=== PATIENT | female | born 1955 | race Caucasian/White ===

== ENCOUNTER → 2016-11-30 | Outpatient (CLI) | payer OTHER ==
--- NOTE | 2016-12-01 09:51 | MM ---
Reason for exam: screening (asymptomatic). Baseline mammogram. History: Patient is postmenopausal. Physical Findings: Nurse did not find any significant physical abnormalities on exam. MG Screening Mammo w CAD Bilateral CC and MLO view(s) were taken. There are scattered fibroglandular densities. There is chronic nodularity in the left breast. ASSESSMENT: Benign, BI-RAD 2 RECOMMENDATION: Routine screening mammogram of both breasts in 1 year.
== END | disposition home or self-care (01) ==
LOC: RADMAMWWP 10:16
PROVIDERS: ATTEND Family Medicine
DX: Z12.31 Encounter for screening mammogram for malignant neoplasm of breast (principal)

== ENCOUNTER → 2017-07-30 | Outpatient (CLI) | payer OTHER ==
--- NOTE | 2017-07-30 22:07 | MR ---
EXAMINATION TYPE: MR brain wo con DATE OF EXAM: 07/30/2017 COMPARISON: NONE HISTORY: Trigeminal neuralgia CONTRAST: Performed utilizing 0 mL intravenous Gadavist gadolinium contrast. TECHNIQUE: Multiplanar, multiecho imaging on a 3.0 Caitlyn magnet is performed through the brain. Stud y is performed within 24 hours of arrival to the hospital. The craniovertebral junction is normal. The pituitary is normal. No suspicious masses within the se lla and suprasellar cistern. Diffusion-weighted imaging is performed. No abnormal hyperintensity is present to suggest an acute i ntracranial infarct or acute ischemic change. There is a punctate subcortical white matter changes in the left parietal lobe this is not of proport ion to the patient age. Ventricles and sulci are appropriate for the patient age. IMPRESSIONS: 1. Unremarkable MRI brain. 2. No suspicious trigeminal nerve changes. Thin section Postcontrast imaging may be useful for additi onal closer evaluation.
== END | disposition home or self-care (01) ==
LOC: RADMRIMAIN 10:02
PROVIDERS: ATTEND Psychiatry & Neurology Pain Medicine
DX: G50.0 Trigeminal neuralgia (principal)
CPT/HCPCS: 70551

== ENCOUNTER → 2019-03-12 | Outpatient (CLI) | payer OTHER ==
--- NOTE | 2019-03-13 13:48 | MM ---
Reason for exam: screening (asymptomatic). Last mammogram was performed 2 years and 3 months ago. History: Patient is postmenopausal. Physical Findings: A clinical breast exam by your physician is recommended on an annual basis and results should be correlated with mammographic findings. MG Screening Mammo w CAD Bilateral CC and MLO view(s) were taken. Prior study comparison: November 30, 2016, bilateral MG screening mammo w CAD. The breast tissue is heterogeneously dense. This may lower the sensitivity of mammography. No suspicious abnormality. No significant changes when compared with prior studies. ASSESSMENT: Negative, BI-RAD 1 RECOMMENDATION: Routine screening mammogram of both breasts in 1 year.
== END ==
LOC: RADMAMWWP 10:48
PROVIDERS: ATTEND Family Medicine
DX: Z12.31 Encounter for screening mammogram for malignant neoplasm of breast (principal)
CPT/HCPCS: 77067

== ENCOUNTER → 2021-01-20 | Outpatient (CLI) | payer OTHER ==
--- NOTE | 2021-01-22 13:40 | MM ---
Reason for exam: screening (asymptomatic). Last mammogram was performed 1 year and 10 months ago. History: Patient is postmenopausal. Physical Findings: A clinical breast exam by your physician is recommended on an annual basis and results should be correlated with mammographic findings. MG Screening Mammo w CAD Bilateral CC and MLO view(s) were taken. Prior study comparison: March 12, 2019, bilateral MG screening mammo w CAD. November 30, 2016, bilateral MG screening mammo w CAD. The breast tissue is heterogeneously dense. This may lower the sensitivity of mammography. There is chronic nodularity in the left breast. No significant changes when compared with prior studies. ASSESSMENT: Benign, BI-RAD 2 RECOMMENDATION: Routine screening mammogram of both breasts in 1 year.
== END | disposition home or self-care (01) ==
LOC: RADMAMWWP 15:08
PROVIDERS: ATTEND Family Medicine
DX: Z12.31 Encounter for screening mammogram for malignant neoplasm of breast (principal); Z78.0 Asymptomatic menopausal state
CPT/HCPCS: 77067

== ENCOUNTER → 2022-03-23 | Outpatient (CLI) | payer OTHER ==
--- NOTE | 2022-03-24 12:25 | MM ---
Reason for Exam: Additional evaluation requested from abnormal screening. Last screening mammogram was performed less than 1 month ago. Patient History: Menarche at age 14. First Full-Term at age 18. Left ovary removed at age 32. Hysterectomy at age 32. Postmenopausal. Niece (mily) had breast cancer under age 50. Risk Values: Rody 5 year model risk: 1.2%. NCI Lifetime model risk: 4.7%. Prior Study Comparison: 03/12/2019 Bilateral Screening Mammogram, [facility]. 01/20/2021 Bilateral Screening Mammogram, [facility]. 02/26/2022 Bilateral MG screening mammo w CAD, [facility]. Tissue Density: Left: The breast tissue is heterogeneously dense. This may lower the sensitivity of mammography. Findings: A mildly lobulated, circumscribed 7 mm mass at the 4:00 position left breast middle depth persists but has an appearance similar to older priors on additional views. Six-month follow-up mammogram is recommended as a precautionary measure. Overall Assessment: Probably benign, BI-RAD 3 Management: Diagnostic Mammogram of the left breast in 6 months. 1. Six-month follow-up diagnostic left breast mammogram for the 4:00 nodularity which appears similar to older priors on additional images. 2. The patient should continue monthly self breast exams. 3. This exam should not preclude additional follow-up of suspicious palpable abnormalities. Results were given to the patient verbally at the time of exam. Electronically signed and approved by: Irene Robles M.D. Radiologist
== END | disposition home or self-care (01) ==
LOC: RADMAMWWP 14:55
PROVIDERS: ATTEND Family Medicine
DX: R92.8 Other abnormal and inconclusive findings on diagnostic imaging of breast (principal)
CPT/HCPCS: 77065

== ENCOUNTER → 2022-10-19 | Outpatient (CLI) | payer OTHER ==
--- NOTE | 2022-10-19 14:46 | MM ---
Reason for Exam: Follow-up at short interval from prior study. Last screening mammogram was performed 8 month(s) ago. Patient History: Menarche at age 14. First Full-Term at age 18. Left ovary removed at age 32. Hysterectomy at age 32. Postmenopausal. Niece (mily) had breast cancer under age 50. Risk Values: Rody 5 year model risk: 1.2%. NCI Lifetime model risk: 4.6%. Prior Study Comparison: 01/20/2021 Bilateral Screening Mammogram, [facility]. 02/26/2022 Bilateral MG screening mammo w CAD, [facility]. 03/23/2022 Left MG work up mamm w CAD LT, [facility]. Tissue Density: Left: There are scattered fibroglandular densities. Findings: Analyzed By CAD. Redemonstrated lobulated mass central lower outer quadrant left breast at middle depth measuring 6 mm. Slightly more pronounced from prior exam. Further ultrasound evaluation is recommended. Overall Assessment: Incomplete: need additional imaging evaluation, BI-RAD 0 Management: Diagnostic Breast Ultrasound of the left breast. Lower-outer quadrant. Electronically signed and approved by: Irene Robles M.D. Radiologist
--- NOTE | 2022-10-19 15:06 | USB ---
Reason for Exam: Additional evaluation requested from abnormal screening. Patient History: Menarche at age 14. First Full-Term at age 18. Left ovary removed at age 32. Hysterectomy at age 32. Postmenopausal. Niece (mily) had breast cancer under age 50. Risk Values: Rody 5 year model risk: 1.2%. NCI Lifetime model risk: 4.6%. Technique: Method: Targeted. Prior Study Comparison: 01/20/2021 Bilateral Screening Mammogram, [facility]. 02/26/2022 Bilateral MG screening mammo w CAD, [facility]. 03/23/2022 Left MG work up mamm w CAD LT, [facility]. Findings: The upper outer quadrant of the left breast, the axilla of the left breast and the retroareolar of the left breast were scanned. Targeted ultrasound lateral aspect of the left breast from 2:00 to 4:00 including the subareolar region and axilla. Corresponding to the mammographic abnormality, located at 4:00, 5 cm from the nipple, there is a cyst cluster measuring 7 x 6 x 3 mm. No other solid or cystic lesion.. Overall Assessment: Benign, BI-RAD 2 Management: Screening Mammogram of both breasts in 6 months. 1. Patient should continue monthly self breast exams. 2. A clinical breast exam by your physician is recommended on an annual basis. 3. This exam should not preclude additional follow-up of suspicious palpable abnormalities. Results were given to the patient verbally at the time of exam. Electronically signed and approved by: Irene Robles M.D. Radiologist
== END | disposition home or self-care (01) ==
LOC: RADMAMWWP 14:15
PROVIDERS: ATTEND Family Medicine
DX: R92.8 Other abnormal and inconclusive findings on diagnostic imaging of breast (principal); Z78.0 Asymptomatic menopausal state
CPT/HCPCS: 77065

== ENCOUNTER 2023-03-04 09:52 | Day surgery (SDC) | payer MEDICARE, OTHER ==
[2023-03-02 10:09] VITALS: BMI 24.2
[~2023-03-04 09:52] MED LIST: LACTATED RINGERS 1,000 ML IV SCH
[2023-03-04] MEDS ORDERED: LACTATED RINGERS 1,000 ML IV ONE (10:22)
[2023-03-04 10:30] VITALS: RESP 16; TEMP 98
[2023-03-04] MEDS ORDERED: PROPOFOL 10 MG/ML 20 ML VIAL IV ONE (11:17)
--- NOTE | 2023-03-04 11:36 | P.PCN ---
Date of Procedure: 03/04/23 Procedure(s) Performed: BRIEF HISTORY: Patient is a 67-year-old pleasant female scheduled for an elective colonoscopy as a part of left lower quadrant abdominal pain and change in bowel habits for the last 6 months duration. PROCEDURE PERFORMED: Colonoscopy with snare polypectomy. PREOPERATIVE DIAGNOSIS: Left lower quadrant abdominal pain and change in bowel habits for the last 6 months duration. IV sedation per Anesthesia. PROCEDURE: After informed consent was obtained, the patient, was brought into the endoscopy unit. IV sedation was administered by Anesthesia under continuous monitoring. Digital rectal examination was normal. Initially the Olympus CF-160 flexible video colonoscope was then inserted in the rectum, gradually advanced into the cecum without any difficulty. Careful examination was performed as the scope was gradually being withdrawn. Ileocecal valve and the appendiceal orifice were visualized and appeared normal. Prep was excellent. Mucosa of the cecum, ascending colon, transverse colon, descending colon, appeared normal. In the sigmoid colon there was a 7-8 mm polyp removed by snare polypectomy. Scattered sigmoid diverticula seen. Rest of the sigmoid colon, and rectum appeared normal. Retroflexion was performed in the rectum and no lesions were seen. The patient tolerated the procedure well. IMPRESSION: 7-8 mm sigmoid polyp status post-polypectomy Scattered sigmoid diverticulosis RECOMMENDATIONS: Findings of this examination were discussed with the patient as well as a family. She was advised to follow with the biopsy results. If the biopsy reveals adenoma she can have a repeat colonoscopy in 5 years..
[2023-03-04 12:09] VITALS: BP 126/68; PULSE 68
== END 2023-03-04 12:47 | disposition home or self-care (01) ==
LOC: ORWHC2ENDO 09:52
PROVIDERS: ATTEND Internal Medicine Gastroenterology
DX: D12.5 Benign neoplasm of sigmoid colon (principal); K57.30 Diverticulosis of large intestine without perforation or abscess without bleeding; I10 Essential (primary) hypertension; E78.5 Hyperlipidemia, unspecified; F17.210 Nicotine dependence, cigarettes, uncomplicated; E03.9 Hypothyroidism, unspecified; Z79.890 Hormone replacement therapy; Z79.899 Other long term (current) drug therapy
CPT/HCPCS: 88305; 45385; J2704

== ENCOUNTER 2023-03-09 02:39 | Emergency (ER) | payer MEDICARE, OTHER ==
[2023-03-09 03:58] LABS: Basophils # (A) 0.1 k/uL (0-0.2); Basophils % (A) 0 %; Eosinophils # (A) 0.3 k/uL (0-0.7); Eosinophils % (A) 3 %; HCT 42.6 % (34.0-46.0); HGB 14.6 gm/dL (11.4-16.0); Lymphocytes # (A) 2.4 k/uL (1.0-4.8); Lymphocytes % (A) 19 %; MCH 31.7 pg (25.0-35.0); MCHC 34.2 g/dL (31.0-37.0); MCV 92.8 fL (80.0-100.0); Mean Platelet Volume 6.8; Monocytes # (A) 0.6 k/uL (0-1.0); Monocytes % (A) 5 %; Neutrophils # (A) 9.1 k/uL (1.3-7.7); Neutrophils % (A) 71 %; Platelet Count 353 k/uL (150-450); RBC 4.59 m/uL (3.80-5.40); RDW 12.6 % (11.5-15.5); WBC 12.8 k/uL (3.8-10.6)
[2023-03-09 04:06] LABS: Amorphous Sediment,Urine Rare /hpf; Appearance,Urine Clear (Clear); Bilirubin,Urine Negative (Negative); Blood,Urine Small (Negative); Color,Urine Light Yellow; Glucose,Urine (UA) Negative (Negative); Ketones,Urine 2+ (Negative); Leukocyte Esterase,Urine Small (Negative); Mucus,Urine Rare /hpf; Nitrite,Urine Negative (Negative); Protein,Urine Negative (Negative); RBC,Urine 21 /hpf (0-5); Specific Gravity,Urine 1.012 (1.001-1.035); Squamous Epithelial Cell,Urine 4 /hpf (0-4); Urobilinogen,Urine <2.0 mg/dL (<2.0); WBC,Urine 11 /hpf (0-5)
[2023-03-09 04:07] LABS: Albumin 4.7 g/dL (3.5-5.0); Calcium 9.4 mg/dL (8.4-10.2); Potassium 3.9 mmol/L (3.5-5.1); Total Bilirubin 0.9 mg/dL (0.2-1.3); Total Protein 7.4 g/dL (6.3-8.2)
--- NOTE | 2023-03-09 06:51 | ED ---
Abdominal Pain HPI - General Chief Complaint: Abdominal Pain Stated Complaint: Abd pain Time Seen by Provider: 03/09/23 06:09 Source: patient, RN notes reviewed Mode of arrival: ambulatory Limitations: no limitations - History of Present Illness Initial Comments: 67-year-old female presents emergency Department with chief complaint of abdominal pain. Patient was seen in the form lisinopril left before treatment. Patient states she's been having issues with her wrong with since October she did have colonoscopy withacute findings other than one polyp. Patient states that she has very narrow stool states that it's usually very irregular. Patient denies any localized abdominal pain she states her primary was consented for CAT scan but was never completed. Patient denies fevers or chills she has not follow-up again with GI she denies any change in oral intake. - Related Data Home Medications Medication Instructions Recorded Confirmed Atorvastatin [Lipitor] 20 mg PO HS 03/10/16 03/04/23 Levothyroxine Sodium 25 mcg PO DAILY 03/02/23 03/04/23 amLODIPine [Norvasc] 5 mg PO HS 03/02/23 03/04/23 Previous Rx's Medication Instructions Recorded Ketorolac [Toradol] 10 mg PO Q8HR #15 tab 03/09/23 Nitrofurantoin Monohyd/M-Cryst 100 mg PO Q12HR #14 cap 03/09/23 [Macrobid] Ondansetron Odt [Zofran Odt] 4 mg PO Q8HR PRN #10 tab 03/09/23 Allergies Allergy/AdvReac Type Severity Reaction Status Date / Time No Known Allergies Allergy Verified 03/09/23 02:48 Review of Systems ROS Statement: Those systems with pertinent positive or pertinent negative responses have been documented in the HPI. ROS Other: All systems not noted in ROS Statement are negative. Past Medical History Past Medical History: Hyperlipidemia, Hypertension, Thyroid Disorder Additional Past Medical History / Comment(s): CHANGE IN BOWEL HABITS History of Any Multi-Drug Resistant Organisms: MRSA Date of last positivie culture/infection: 2011 MDRO Source:: right arm- Past Surgical History: Hysterectomy Additional Past Surgical History / Comment(s): COLONOSCOPY Past Anesthesia/Blood Transfusion Reactions: No Reported Reaction Past Psychological History: No Psychological Hx Reported Smoking Status: Current every day smoker Past Alcohol Use History: None Reported Past Drug Use History: None Reported - Past Family History Mother Family Medical History: Cancer Brother(s) Family Medical History: Cancer General Exam Limitations: no limitations General appearance: alert, in no apparent distress Head exam: Present: atraumatic, normocephalic, normal inspection Neck exam: Present: normal inspection. Absent: tenderness, meningismus, lymphadenopathy Respiratory exam: Present: normal lung sounds bilaterally. Absent: respiratory distress, wheezes, rales, rhonchi, stridor Cardiovascular Exam: Present: regular rate, normal rhythm, normal heart sounds. Absent: systolic murmur, diastolic murmur, rubs, gallop, clicks GI/Abdominal exam: Present: soft, normal bowel sounds. Absent: distended, ten derness, guarding, rebound, rigid Back exam: Absent: CVA tenderness (R), CVA tenderness (L) Neurological exam: Present: alert Course Vital Signs 03/09/23 03/09/23 03/09/23 02:48 04:30 05:21 Temperature 98.1 F 98.6 F Pulse Rate 89 68 67 Respiratory 16 18 18 Rate Blood Pressure 147/79 158/68 143/68 O2 Sat by Pulse 98 99 96 Oximetry 03/09/23 03/09/23 06:48 07:40 Temperature 98.1 F Pulse Rate 71 81 Respiratory 16 20 Rate Blood Pressure 136/67 153/71 O2 Sat by Pulse 97 99 Oximetry Medical Decision Making - Lab Data Result diagrams: 03/09/23 03:48 03/09/23 03:48 Lab Results 03/09/23 03/09/23 03/09/23 Range/Units 03:48 03:48 03:48 WBC 12.8 H (3.8-10.6) k/uL RBC 4.59 (3.80-5.40) m/uL Hgb 14.6 (11.4-16.0) gm/dL Hct 42.6 (34.0-46.0) % MCV 92.8 (80.0-100.0) fL MCH 31.7 (25.0-35.0) pg MCHC 34.2 (31.0-37.0) g/dL RDW 12.6 (11.5-15.5) % Plt Count 353 (150-450) k/uL MPV 6.8 Neutrophils % 71 % Lymphocytes % 19 % Monocytes % 5 % Eosinophils % 3 % Basophils % 0 % Neutrophils # 9.1 H (1.3-7.7) k/uL Lymphocytes # 2.4 (1.0-4.8) k/uL Monocytes # 0.6 (0-1.0) k/uL Eosinophils # 0.3 (0-0.7) k/uL Basophils # 0.1 (0-0.2) k/uL Sodium 140 (137-145) mmol/L Potassium 3.9 (3.5-5.1) mmol/L Chloride 106 (98-107) mmol/L Carbon Dioxide 24 (22-30) mmol/L Anion Gap 10 mmol/L BUN 19 H (7-17) mg/dL Creatinine 0.90 (0.52-1.04) mg/dL Est GFR (CKD-EPI)AfAm 78 (>60 ml/min/1.73 sqM) Est GFR (CKD-EPI)NonAf 68 (>60 ml/min/1.73 sqM) Glucose 98 (74-99) mg/dL Plasma Lactic Acid Jacobo (0.7-2.0) mmol/L Calcium 9.4 (8.4-10.2) mg/dL Total Bilirubin 0.9 (0.2-1.3) mg/dL AST 25 (14-36) U/L ALT 16 (4-34) U/L Alkaline Phosphatase 134 H (38-126) U/L Total Protein 7.4 (6.3-8.2) g/dL Albumin 4.7 (3.5-5.0) g/dL Amylase 43 (30-110) U/L Lipase 88 (23-300) U/L Urine Color Light Yellow Urine Appearance Clear (Clear) Urine pH 5.0 (5.0-8.0) Ur Specific [place] 1.012 (1.001-1.035) Urine Protein Negative (Negative) Urine Glucose (UA) Negative (Negative) Urine Ketones 2+ H (Negative) Urine Blood Small H (Negative) Urine Nitrite Negative (Negative) Urine Bilirubin Negative (Negative) Urine Urobilinogen <2.0 (<2.0) mg/dL Ur Leukocyte Esterase Small H (Negative) Urine RBC 21 H (0-5) /hpf Urine WBC 11 H (0-5) /hpf Ur Squamous Epith Cells 4 (0-4) /hpf Amorphous Sediment Rare H (None) /hpf Urine Mucus Rare H (None) /hpf 03/09/23 Range/Units 03:48 WBC (3.8-10.6) k/uL RBC (3.80-5.40) m/uL Hgb (11.4-16.0) gm/dL Hct (34.0-46.0) % MCV (80.0-100.0) fL MCH (25.0-35.0) pg MCHC (31.0-37.0) g/dL RDW (11.5-15.5) % Plt Count (150-450) k/uL MPV Neutrophils % % Lymphocytes % % Monocytes % % Eosinophils % % Basophils % % Neutrophils # (1.3-7.7) k/uL Lymphocytes # (1.0-4.8) k/uL Monocytes # (0-1.0) k/uL Eosinophils # (0-0.7) k/uL Basophils # (0-0.2) k/uL Sodium (137-145) mmol/L Potassium (3.5-5.1) mmol/L Chloride (98-107) mmol/L Carbon Dioxide (22-30) mmol/L Anion Gap mmol/L BUN (7-17) mg/dL Creatinine (0.52-1.04) mg/dL Est GFR (CKD-EPI)AfAm (>60 ml/min/1.73 sqM) Est GFR (CKD-EPI)NonAf (>60 ml/min/1.73 sqM) Glucose (74-99) mg/dL Plasma Lactic Acid Jacobo 1.2 (0.7-2.0) mmol/L Calcium (8.4-10.2) mg/dL Total Bilirubin (0.2-1.3) mg/dL AST (14-36) U/L ALT (4-34) U/L Alkaline Phosphatase (38-126) U/L Total Protein (6.3-8.2) g/dL Albumin (3.5-5.0) g/dL Amylase (30-110) U/L Lipase (23-300) U/L Urine Color Urine Appearance (Clear) Urine pH (5.0-8.0) Ur Specific [place] (1.001-1.035) Urine Protein (Negative) Urine Glucose (UA) (Negative) Urine Ketones (Negative) Urine Blood (Negative) Urine Nitrite (Negative) Urine Bilirubin (Negative) Urine Urobilinogen (<2.0) mg/dL Ur Leukocyte Esterase (Negative) Urine RBC (0-5) /hpf Urine WBC (0-5) /hpf Ur Squamous Epith Cells (0-4) /hpf Amorphous Sediment (None) /hpf Urine Mucus (None) /hpf Disposition Clinical Impression: Left ureteral calculus Disposition: HOME SELF-CARE Condition: Stable Instructions (If sedation given, give patient instructions): Kidney Stones (ED) Additional Instructions: Please return to the Emergency Department if symptoms worsen or any other concerns. Prescriptions: Nitrofurantoin Monohyd/M-Cryst [Macrobid] 100 mg PO Q12HR #14 cap Ketorolac [Toradol] 10 mg PO Q8HR #15 tab Ondansetron Odt [Zofran Odt] 4 mg PO Q8HR PRN #10 tab PRN Reason: Nausea Is patient prescribed a controlled substance at d/c from ED?: No Referrals: Nandini Love MD [Primary Care Provider] - 1-2 days Fei Joiner MD [STAFF PHYSICIAN] - 1-2 days Time of Disposition: 08:50
[2023-03-09 07:41] VITALS: TEMP 98.1
--- NOTE | 2023-03-09 08:18 | CT ---
EXAMINATION TYPE: CT abdomen pelvis w con DATE OF EXAM: 03/09/2023 COMPARISON: NONE HISTORY: 67-year-old female with pain TECHNIQUE: Contiguous axial scanning of the abdomen and pelvis following administration of 100 ml Iso jonatan 300 IV contrast. Delayed images through the kidneys and coronal/sagittal reconstructions perform ed. CT DLP: 568.3 mGycm Automated exposure control for dose reduction was used. FINDINGS: Heart normal size without pericardial effusion. Prominent dependent atelectasis at the left greater than right lung bases. 6 mm hypodensity left liver lobe too small for accurate CT characterization, likely small cyst. Gallito l venous system is patent. Bile duct measures 6 mm, borderline caliber, probably acceptable given patient's age. There is a 9 mm gallstone. No abnormal gallbladder distention. Adrenal glands and spleen without perisplenic mural within normal limits. Some punctate pancreatic calcifications are nonspecific, possibly sequela of prior pancreatitis. Tiny 5 mm cortical cyst lateral right kidney. Punctate 2 mm nonobstructive right renal calculus. There is moderate left-sided hydronephrosis. Mild left-sided urothelial thickening. Perinephric fat s tranding and edema noted. Mild left-sided hydroureter with a 5 mm stone in the distal third left uret er. No dilated small bowel, free fluid, or free air. No mesenteric or retroperitoneal lymphadenopathy. No significant stool burden. No pericolonic inflammatory change. Bladder urine distended. Multiple pelvic phleboliths. Uterus surgically absent. Ovaries not well deli neated. No abnormal fluid collection in the pelvis or pelvic lymphadenopathy. Bones: No osseous destructive process. IMPRESSION: 1. A 5 MM STONE IN THE DISTAL THIRD LEFT URETER WITH MODERATE OBSTRUCTIVE UROPATHY. 2. MILD REACTIVE LEFT-SIDED PERINEPHRIC EDEMA. MILD LEFT-SIDED UROTHELIAL THICKENING MAY BE REACTIVE WELL. CORRELATE TO EXCLUDE AN ASCENDING URINARY TRACT INFECTION. 3. Incidental: 9 mm gallstone and a punctate 2 mm nonobstructive right renal calculus.
[2023-03-09] MEDS ORDERED: ACET/COD 300 MG/30 MG STARTER PACK 6 TAB BTL PO STA (08:46)
[2023-03-09 08:58] VITALS: BP 132/64; PULSE 77; RESP 18
== END 2023-03-09 08:57 | disposition home or self-care (01) ==
LOC: EC 02:39
DX: N13.2 Hydronephrosis with renal and ureteral calculous obstruction (principal); I10 Essential (primary) hypertension; E78.5 Hyperlipidemia, unspecified; E07.9 Disorder of thyroid, unspecified; F17.200 Nicotine dependence, unspecified, uncomplicated; Z79.890 Hormone replacement therapy; Z79.899 Other long term (current) drug therapy
CPT/HCPCS: 36415; 80053; 82150; 83605; 83690; 85025; 81001; 74177; 99284; Q9967

== ENCOUNTER 2023-03-15 13:49 | Day surgery (SDC) | payer MEDICARE, OTHER ==
[2023-03-15 14:13] VITALS: RESP 16
[2023-03-15] MEDS ORDERED: LACTATED RINGERS 1,000 ML IV ONE ×2 (14:23→17:35)
[2023-03-15] MEDS ORDERED: ONDANSETRON 4 MG/2 ML VIAL ONE (14:28)
[2023-03-15] MEDS ORDERED: DEXAMETHASONE SOD PHOSPHATE 4 MG/ML 1 ML VIAL IVP ONE (14:31)
[2023-03-15] MEDS ORDERED: MIDAZOLAM 2 MG/2 ML VIAL ONE (16:09)
[2023-03-15] MEDS ORDERED: fentaNYL (PF) 50 MCG/ML 2 ML AMP ONE (16:09)
[2023-03-15] MEDS ORDERED: PROPOFOL 10 MG/ML 20 ML VIAL IV ONE (16:09)
--- NOTE | 2023-03-15 16:14 | P.HPIHPCON ---
History of Present Illness H&P Date: 03/15/23 Chief Complaint: left ureteral stone This is a 67 yo female with hx of 6mm left sided ureteral stone, she is symptomatic from her kidney stone, and planning to be out of town in approximately 1 week. Discussed with her given her travel plan I recommended addressing the stone prior to her travel. Option of ureteroscopy versus ESWL was discussed in detail. She agreed to proceed with ureteroscopy with holmium laser. Discussed risk of bleeding infection injury to the ureter. Risk of anesthesia was also discussed. She understood all the risk and agreed to proceed Consent for Procedure: I have explained the operation/procedure to the patient, including the risks, benefits, side effects, alternative therapies (including not receiving the proposed treatment or service), the likelihood of the patient achieving his/her goals, and potential recuperation problems for the procedure/sedation/analgesia, as well as any blood products, if indicated. I also explained to the patient the risks, benefits and side effects of the alternatives, as well as the risks related to not receiving the proposed procedure, care, treatment, or services. Past Medical History Past Medical History: Hyperlipidemia, Hypertension, Thyroid Disorder Additional Past Medical History / Comment(s): CHANGE IN BOWEL HABITS History of Any Multi-Drug Resistant Organisms: MRSA Date of last positivie culture/infection: 2011 MDRO Source:: right arm- Past Surgical History: Hysterectomy Additional Past Surgical History / Comment(s): COLONOSCOPY Past Anesthesia/Blood Transfusion Reactions: No Reported Reaction Past Psychological History: No Psychological Hx Reported Smoking Status: Current every day smoker Past Alcohol Use History: None Reported Additional Past Alcohol Use History / Comment(s): SMOKES 6 CIG. DAILY FOR PAST 30 YRS Past Drug Use History: Marijuana Additional Drug Use History / Comment(s): USES DAILY AT NIGHT TO HELP WITH SLEEP-INSTRUCTED TO REFRAIN FROM USE FOR AT LEAST 24 HOURS - Past Family History Mother Family Medical History: Cancer Brother(s) Family Medical History: Cancer Additional Family Medical History / Comment(s): LEUKEMIA Medications and Allergies Home Medications Medication Instructions Recorded Confirmed Type Atorvastatin [Lipitor] 20 mg PO HS 03/10/16 03/15/23 History Levothyroxine Sodium 25 mcg PO DAILY 03/02/23 03/15/23 History amLODIPine [Norvasc] 5 mg PO HS 03/02/23 03/15/23 History Ketorolac [Toradol] 10 mg PO Q8HR #15 tab 03/09/23 03/15/23 Rx Nitrofurantoin Monohyd/M-Cryst 100 mg PO Q12HR #14 cap 03/09/23 03/15/23 Rx [Macrobid] Ondansetron Odt [Zofran Odt] 4 mg PO Q8HR PRN #10 tab 03/09/23 03/15/23 Rx Allergies Allergy/AdvReac Type Severity Reaction Status Date / Time No Known Allergies Allergy Verified 03/15/23 14:05 Surgical - Exam Vital Signs Temp Pulse Resp BP Pulse Ox 97.4 F L 76 16 151/69 99 03/15/23 14:12 03/15/23 14:12 03/15/23 14:12 03/15/23 14:12 03/15/23 14:12 - General no distress, moderate pain - Eyes normal ocular movement, no pale - ENT normal nares, normal mucosa - Respiratory normal expansion, normal respiratory effort - Abdomen Abdomen: soft, non tender - Psychiatric oriented to time, oriented to person, oriented to place Assessment and Plan Assessment: Or for left-sided ureteroscopy, holmium laser lithotripsy, stone basketing and possible stent insertion
[2023-03-15 17:11] VITALS: TEMP 97.3
[2023-03-15] MEDS ORDERED: KETOROLAC 15 MG/ML 1 ML VIAL IVP ONE (17:31)
--- NOTE | 2023-03-15 17:32 | P.OP ---
Date of Procedure: 03/15/23 Preoperative Diagnosis: Left ureteral stone Postoperative Diagnosis: Same Procedure(s) Performed: Cystoscopy, left ureteroscopy, holmium laser lithotripsy, stone basketing and stent insertion Implants: 6 fr x 24 cm stent in the left ureter Anesthesia: EVARISTO Surgeon: Isaac Arellano Estimated Blood Loss (ml): 5 Pathology: other (left ureteral stone) Condition: stable Disposition: PACU Indications for Procedure: This is a 67 yo female with hx of 6mm left sided ureteral stone, she is symptomatic from her kidney stone, and planning to be out of town in approximately 1 week. Discussed with her given her travel plan I recommended addressing the stone prior to her travel. Option of ureteroscopy versus ESWL was discussed in detail. She agreed to proceed with ureteroscopy with holmium laser. Discussed risk of bleeding infection injury to the ureter. Risk of anesthesia was also discussed. She understood all the risk and agreed to proceed Operative Findings: Left distal ureteral stone Description of Procedure: Patient brought to the operating room, general anesthesia was induced. She was prepped and draped in sterile fashion and placed in dorsal lithotomy position. Cystoscopy fitted 21-Y[place]ut sheath was inserted per urethra, cystoscopy was performed which showed no abnormality within the bladder. Attention was then carried to the left ureteral orifice, semirigid ureteroscope was advanced up the left ureteral orifice, stone was encountered in the distal ureter. Using the holmium laser the stones were fragmented, stone fragments were removed using the stone basket and sent for analysis. At this time the ureteroscope was advanced all the way up to the UPJ which showed no additional stones or any sizable fragments, pullback ureteroscopy was performed which showed no injury to the ureter or any ureteral stones, of note there was ureteral edema at the site of the stone. At this time a sensor wire was advanced through the ureteroscope and the ureteroscope was withdrawn with the wire in place. Next a ureteral stent was passed over the wire, the proximal curl was visualized on fluoroscopy and the distal curl was visualized using cystoscope. The bladder was emptied at the end of the case. Patient tolerated procedure well was taken to recovery in stable condition
[2023-03-15 17:56] VITALS: BP 118/59; PULSE 65
--- NOTE | 2023-03-15 18:07 | FL ---
Intraoperative/procedural fluoroscopic services were provided. Total fluoroscopy time is 6 seconds wi th a total of 4 submitted images to PACS. Please see the operative/procedural note for further detail s. DAP: [id number] [id number]
== END 2023-03-15 18:16 | disposition home or self-care (01) ==
LOC: OR 13:49
PROVIDERS: ATTEND Urology
DX: N20.1 Calculus of ureter (principal); I10 Essential (primary) hypertension; E78.5 Hyperlipidemia, unspecified; E07.9 Disorder of thyroid, unspecified; Z86.14 Personal history of Methicillin resistant Staphylococcus aureus infection; F17.210 Nicotine dependence, cigarettes, uncomplicated; F12.90 Cannabis use, unspecified, uncomplicated; Z79.890 Hormone replacement therapy; Z79.899 Other long term (current) drug therapy; Z79.1 Long term (current) use of non-steroidal anti-inflammatories (NSAID)
CPT/HCPCS: 82365; 52356; C1769 ×2; J1100; J2405; J1885

== ENCOUNTER → 2024-04-03 | Outpatient (CLI) | payer MEDICARE, OTHER ==
--- NOTE | 2024-04-04 14:06 | MM ---
Reason for Exam: Screening (asymptomatic). Last mammogram was performed 2 year(s) and 1 month(s) ago. Patient History: Menarche at age 14. First Full-Term at age 18. Left ovary removed at age 32. Hysterectomy at age 32. Postmenopausal. Niece (mily) had breast cancer under age 50. Risk Values: Rody 5 year model risk: 1.2%. NCI Lifetime model risk: 4.4%. Prior Study Comparison: 02/26/2022 Bilateral MG screening mammo w CAD, [facility]. 03/23/2022 Left MG work up mamm w CAD LT, [facility]. 10/19/2022 Left MG diagnostic mammo LT w CAD, [facility]. Tissue Density: The breasts are heterogeneously dense, which may obscure small masses. Findings: Analyzed By CAD. Right breast: There is no suspicious group of microcalcifications or new suspicious mass. Left breast: There is no suspicious group of microcalcifications or new suspicious mass. Overall Assessment: Negative, BI-RAD 1 Management: Screening Mammogram of both breasts in [address] [facility] will attempt to contact patient to return for supplemental views and ultrasound if indicated. Patient should continue monthly self-breast exams. A clinical breast exam by your physician is recommended on an annual basis. This exam should not preclude additional follow-up of suspicious palpable abnormalities. Note on Rody scores and lifetime risk: 1. A Rody score greater than 3% is considered moderate risk. If this is the case, consider specialist referral to assess eligibility for a risk reducing agent. 2. If overall lifetime risk for the development of breast cancer is 20% or higher, the patient may qualify for future screening with alternating mammogram and breast MRI. Electronically signed and approved by: Felix Alicia DO
== END | disposition home or self-care (01) ==
LOC: RADMAMWWP 15:21
PROVIDERS: ATTEND Family Medicine
DX: Z12.31 Encounter for screening mammogram for malignant neoplasm of breast (principal); Z78.0 Asymptomatic menopausal state
CPT/HCPCS: 77063; 77067